=== PATIENT | male | born 1975 | race Caucasian/White ===

== ENCOUNTER 2017-01-14 10:40 | Emergency (ER) | payer MEDICARE, MEDICAID ==
[~2017-01-14] VITALS: Ht 167.6 cm; Wt 90.9 kg
[~2017-01-14 10:40] MED LIST: CITA20TA6 PO; HALO5TAB16 PO; LEVE500T34 PO; LORA-444 PO; METO-53 PO; OMEP20CA16 PO; PHEN30TA24 PO; [UNRECOGNIZED DRUG - CODE] PO
[2017-01-14 10:42] VITALS: Ht 167.6 cm; Wt 90.9 kg
[2017-01-14] MEDS ORDERED: IBUP400T22 PO (11:13)
--- NOTE | 2017-01-14 13:14 | ERD ---
ER Documentation Chief Complaint Chief Complaint Pt with R leg abd foot pain x 1 day after fall. No ko HPI Is a 41-year-old male presenting to the emergency department complaining of her it right lateral leg pain status post ground-level fall that occurred an hour prior to being seen. Patient states that he is able to move all his joints but he does have pain with certain movements. Denies taking any medications for this. He denies any head injury or loss of consciousness. ROS All systems reviewed and are negative except as per history of present illness. Medications Home Meds Active Scripts Ibuprofen* (Ibuprofen*) 400 Mg Tablet, 400 MG PO Q6H Y for PAIN, #30 TAB Prov:VEDA BARBOZA PA-C 01/14/17 Reported Medications Divalproex Sodium (Depakote Er) 250 Mg Tab.sr.24h, PO BID 11/04/10 Phenobarbital* (Phenobarbital*) 30 Mg Tablet, PO HS 11/04/10 Levetiracetam* (Keppra XR*) 500 Mg Tab.sr.24h, PO BID 11/04/10 Lorazepam* (Ativan*) 2 Mg Tablet, PO TID PRN 11/04/10 Omeprazole* (Omeprazole*) 20 Mg Capsule.dr, PO DAILY 11/04/10 Citalopram Hydrobromide* (Citalopram Hydrobromide*) 20 Mg Tablet, PO BID 11/04/10 Haloperidol (Haloperidol) 5 Mg Tablet, PO DAILY 11/04/10 Metoprolol (Lopressor) 50 Mg Tablet, PO DAILY 11/04/10 Allergies Allergies: Coded Allergies: Mephobarbital (Verified Allergy, Intermediate, 11/11/11) carbamazepine (Verified Allergy, Mild, VOMIT, 11/11/11) Uncoded Allergies: BARBITUATES (Allergy, Intermediate, 10/09/10) TEGRATAL (Allergy, Intermediate, 10/09/10) PMhx/Soc History of Surgery: Yes (LEFT KNEE SURGERY) Anesthesia Reaction: No Hx Neurological Disorder: Yes (SEIZURE) Hx Respiratory Disorders: No Hx Cardiac Disorders: No Hx Psychiatric Problems: No Hx Miscellaneous Medical Probl: Yes (TOURETTE) Hx Alcohol Use: No Hx Substance Use: No Hx Tobacco Use: No Physical Exam Vitals Vital Signs Date Time Temp Pulse Resp B/P Pulse Ox O2 Delivery O2 Flow Rate FiO2 11/12/17 10:42 97.4 76 18 142/80 96 Physical Exam Const: [] Head: Atraumatic Eyes: Normal Conjunctiva ENT: Normal External Ears, Nose and Mouth. Neck: Full range of motion..~ No meningismus. Resp: Clear to auscultation bilaterally Cardio: Regular rate and rhythm, no murmurs Abd: Soft, non tender, non distended. Normal bowel sounds Skin: No petechiae or rashes Back: No midline or flank tenderness Ext: Palpation on the right lateral leg Neur: Awake and alert Psych: Normal Mood and Affect Procedures/MDM Is a 41-year-old male presenting to the emergency department with right lateral leg pain status post ground-level fall that occurred an hour prior to being seen. Patient was able to move all extremities, he had no restricted range of motion. It appears to be a sprain. I doubt that he has any fracture dislocation. An Jeet bandage was placed. Patient is neurovascular intact pre- and post treatment. Prescription for ibuprofen was provided. Discussed return to the ER for any worsening symptoms. He understands and agrees this plan Departure Diagnosis: Primary Impression: Sprain Condition: Stable Patient Instructions: R.I.C.E., TreatingStrains and Sprains Additional Instructions: FOLLOW UP WITH YOUR PRIMARY CARE PHYSICIAN TOMORROW.Return to this facility if you are not improving as expected. Return to this facility if you are not improving as expected. VEDA BARBOZA PA-C Jan 14, 2017 13:14
== END 2017-01-14 11:35 | disposition home or self-care (01) ==
LOC: FTE 10:40
DX: S93.601A Unspecified sprain of right foot, initial encounter (principal); W18.39XA Other fall on same level, initial encounter; Y92.9 Unspecified place or not applicable
CPT/HCPCS: 99283

== ENCOUNTER 2017-11-30 11:12 | Emergency (ER) | END 2017-11-30 13:23 | disposition home or self-care (01) ==